=== PATIENT | male | born 1955 | race Caucasian/White ===

== ENCOUNTER 2020-01-12 19:42 | Outpatient (CLI) | payer BC | END 2020-01-12 19:43 | disposition short-term general hospital (02) | LOC: EMS 19:42 | PROVIDERS: ATTEND Surgery | DX: R53.1 Weakness (principal); R47.81 Slurred speech; R29.810 Facial weakness | CPT/HCPCS: A0425; A0429 ==

== ENCOUNTER 2020-04-09 05:38 | Outpatient (CLI) | payer BC | END 2020-04-09 05:39 | disposition critical access hospital (66) | LOC: EMS 05:38 | PROVIDERS: ATTEND Surgery | DX: R42 Dizziness and giddiness (principal); W06.XXXA Fall from bed, initial encounter; Y92.003 Bedroom of unspecified non-institutional (private) residence as the place of occurrence of the external cause; Z79.01 Long term (current) use of anticoagulants | CPT/HCPCS: A0425; A0429 ==

== ENCOUNTER 2020-04-09 06:11 | Emergency (ER) | payer BC ==
--- NOTE | 2020-04-09 07:20 | ED Physician Documentation ---
History of Present Illness - Stated complaint Stated Complaint: GLF - Chief complaint Chief Complaint: General - History obtained from History obtained from: Patient, Family (mom) - History of Present Illness Timing: Today - Additonal information Additional information: 64-year-old gentleman with history of ischemic stroke subsequently converted to hemorrhagic in early January complicated by DVT now on novel anticoagulation was getting out of bed this morning and usually waits for his to help him get up. He did not wait this morning and his left leg which is affected by the stroke did not support him and he fell forward hitting a table. He did hit his head but did not lose consciousness and does not have a headache. He has some chronic groin pain and this is somewhat worse but not terrible. Recently on Keflex for lower extremity cellulitis but had to stop prematurely because of an allergic reaction. Review of Systems Constitutional: reports: Reviewed and negative Nose: reports: Reviewed and negative Throat: reports: Reviewed and negative Cardiac: reports: Reviewed and negative Respiratory: reports: Reviewed and negative PD PAST MEDICAL HISTORY - Past Medical History Past Medical History: Yes Cardiovascular: High cholesterol, Deep vein thrombosis, Atrial fibrillation Neuro: CVA : Other Other Past Medical History: neurogenic bladder - Past Surgical History Past Surgical History: No - Present Medications Home Medications: Ambulatory Orders Medication Instructions Recorded Confirmed Apixaban [Eliquis] 04/09/20 Atorvastatin [Lipitor] 04/09/20 Clindamycin HCl [Clindamycin 300MG 300 mg PO Q6H #28 capsule 04/09/20 CAP] Furosemide 04/09/20 Gabapentin [Gralise] 04/09/20 Triamcinolone Acetonide 04/09/20 diphenhydrAMINE [Benadryl] 04/09/20 - Allergies Allergies/Adverse Reactions: Allergies Allergy/AdvReac Type Severity Reaction Status Date / Time cephalexin Allergy Rash Verified 04/09/20 06:15 Penicillins Allergy Hives Verified 04/09/20 06:15 - Social History Does the pt smoke?: No Smoking Status: Never smoker Does the pt drink ETOH?: Yes ETOH Use: Wine Does the pt have substance abuse?: No - Immunizations Immunizations are current?: Yes - POLST Patient has POLST: No PD ED PE NORMAL - Vitals Vital signs reviewed: Yes - General General: Alert and oriented X 3, No acute distress - HEENT HEENT: PERRL, EOMI - Neck Neck: Supple, no meningeal sign, No bony TTP - Cardiac Cardiac: RRR, No murmur - Respiratory Respiratory: No respiratory distress, Clear bilaterally - Abdomen Abdomen: Non tender - Extremities Extremities: Other (He has cellulitis on the bottom of the right foot with some open areas.) - Neuro Neuro: Alert and oriented X 3, Other (Barely has any motion of the left upper extremity, he is able to lift the Left lower extremity off the bed but is weak there. Does have a left facial droop that is moderate) Eye Opening: Spontaneous Motor: Obeys Commands Verbal: Oriented GCS Score: 15 Results - Vitals Vitals: Vital Signs - 24 hr 04/09/20 04/09/20 04/09/20 06:15 06:20 07:45 Temperature 36.8 C Heart Rate 72 70 70 Respiratory 18 18 16 Rate Blood Pressure 134/78 H 134/78 H 125/57 L O2 Saturation 97 98 100 04/09/20 04/09/20 04/09/20 08:00 08:05 08:10 Temperature Heart Rate 137 H 145 H 140 H Respiratory 16 16 17 Rate Blood Pressure 139/80 H 127/107 H 128/84 H O2 Saturation 100 99 97 04/09/20 04/09/20 04/09/20 08:15 08:20 08:25 Temperature Heart Rate 137 H 136 H 121 H Respiratory 16 16 18 Rate Blood Pressure 112/81 H 121/74 104/71 O2 Saturation 97 98 96 04/09/20 04/09/20 04/09/20 08:46 08:55 09:00 Temperature Heart Rate 114 H 130 H 131 H Respiratory 17 18 18 Rate Blood Pressure 111/82 H 127/92 H 121/85 H O2 Saturation 98 100 98 04/09/20 04/09/20 04/09/20 09:05 09:22 09:25 Temperature Heart Rate 135 H 119 H 115 H Respiratory 20 18 18 Rate Blood Pressure 109/87 H 103/60 111/72 O2 Saturation 98 97 97 04/09/20 04/09/20 04/09/20 09:30 09:35 09:40 Temperature Heart Rate 120 H 111 H 127 H Respiratory 16 16 18 Rate Blood Pressure 108/70 94/61 86/67 L O2 Saturation 98 98 98 04/09/20 04/09/20 04/09/20 09:45 09:55 10:05 Temperature Heart Rate 122 H 122 H 51 L Respiratory 18 19 17 Rate Blood Pressure 106/67 113/73 95/60 O2 Saturation 99 98 99 04/09/20 04/09/20 04/09/20 10:10 10:15 10:20 Temperature Heart Rate 50 L 51 L 52 L Respiratory 17 16 17 Rate Blood Pressure 90/62 91/59 L 91/59 L O2 Saturation 99 100 100 04/09/20 04/09/20 04/09/20 10:25 10:30 10:35 Temperature Heart Rate 52 L 52 L 52 L Respiratory 17 17 17 Rate Blood Pressure 90/58 L 90/63 93/60 O2 Saturation 100 99 99 04/09/20 10:55 Temperature Heart Rate 57 L Respiratory 18 Rate Blood Pressure 100/59 L O2 Saturation 100 Oxygen O2 Source Room air - Labs Labs: Laboratory Tests 04/09/20 04/09/20 09:15 09:15 WBC 10.0 RBC 4.61 L Hgb 13.6 L Hct 41.4 L MCV 89.8 MCH 29.5 MCHC 32.9 RDW 14.4 Plt Count 211 MPV 10.5 Neut # (Auto) 7.0 H Lymph # (Auto) 1.1 L [place] # (Auto) 0.7 Eos # (Auto) 1.1 H Baso # (Auto) 0.0 Absolute Nucleated RBC 0.00 Band Neuts % (Manual) Not Reportable Abnorm Lymph % (Manual) Not Reportable Nucleated RBC % 0.0 Neutrophils # (Manual) Not Reportable Lymphocytes # (Manual) Not Reportable Monocytes # (Manual) Not Reportable Eosinophils # (Manual) Not Reportable Basophils # (Manual) Not Reportable Differential Comment MANUAL=AUTO DIFF WBC Morphology NORMAL APPEARANCE Platelet Estimate NORMAL (130-450,000) Platelet Morphology NORMAL APPEARANCE RBC Morph Micro Appear NORMAL APPEARANCE Sodium 141 Potassium 3.8 Chloride 107 Carbon Dioxide 24 Anion Gap 10.0 BUN 19 Creatinine 0.9 Estimated GFR (MDRD) 85 L Glucose 115 H Calcium 9.5 Magnesium 2.2 Total Bilirubin 0.8 AST 27 ALT 39 Alkaline Phosphatase 73 Total Protein 7.3 Albumin 4.7 Globulin 2.6 Albumin/Globulin Ratio 1.8 Lipase 29 Procedures - Procedural sedation Sedation prep: Informed consent, Time out completed, Last meal (yest), PE performed, AHA 3 - severe disease Sedation medications: etomidate (10mg IVP) Patient status during sedation: Unresponsive, Vitals remained stable, Maintained airway, Recovered uneventfully Sedation recovery: Recovered uneventfully Time in sedation (Minutes): 10 - Cardioversion 1 Time of attempt: 10:00 Indication: Tachyarrhythmia Risks, benefits, alternatives explained to: Pt (and spouse) 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 He has a stable neurologic exam with evidence of prior stroke, but no signs of significant head injury. He went over the CAT scan there, CT was negative. At approximately 8 AM I was notified by the nurse that he had gone into rapid A. fib, on the monitor he was in A. fib with heart rates of about 130. He has not had his home metoprolol this morning and he was given 5 mg IV. This did not result in rate control, subsequently was given divided doses of diltiazem and more metoprolol without really any change in rate. He did become borderline hypotensive with these interventions, to the 90/60 range. IV magnesium was also given. Given that he is anticoagulated, he should be safe to electrically cardiovert and this was discussed with the patient and his and they were agreeable. Subsequently was given some etomidate and cardioverted successfully on the first shock. Recovered without issue. Departure - Departure Disposition: 01 Home, Self Care Clinical Impression: Right foot infection, Rapid atrial fibrillation Head injury Qualifiers: Encounter type: initial encounter Qualified Code(s): S09.90XA - Unspecified injury of head, initial encounter Condition: Good Record reviewed to determine appropriate education?: Yes Instructions: ED Infec Skin Cellulitis, ED Head Injury Closed Prescriptions: Clindamycin HCl [Clindamycin 300MG CAP] 300 mg PO Q6H #28 capsule Comments: You were seen today for minor head injury, noting that you are on blood thinners we did a CT scan which was negative. You also have a mild infection on the bottom of the right foot for which we are prescribing a new antibiotic. Follow- up with your doctor Sunday or Sunday for recheck. Return for new or worsening symptoms. While you were here you developed rapid atrial fibrillation was resistant to medications but we were able to shock you out of it easily. Hold the torsemide today because of some low blood pressures here, recheck your blood pressure tonight, if over 130 systolic (the top number) go ahead and restart your metoprolol tonight, otherwise restart it tomorrow. Discharge Date/Time: 04/09/20 11:15
[2020-04-09] MEDS ORDERED: ACETAMINOPHEN 325 MG TABLET PO STA (07:25)
[2020-04-09] MEDS ORDERED: METOPROLOL 5 MG/5 ML VIAL IVP STA ×2 (08:00→09:03)
[2020-04-09] MEDS ORDERED: DILTIAZEM 50 MG/10 ML VIAL IVP ONE ×2 (08:17→08:53)
--- NOTE | 2020-04-09 08:58 | CT Report ---
PROCEDURE: HEAD WO INDICATIONS: fall, head injury, on eliquis TECHNIQUE: Noncontrast 4.5 mm thick angled axial sections acquired from the foramen magnum to the vertex. For r adiation dose reduction, the following was used: automated exposure control, adjustment of mA and/or kV according to patient size. COMPARISON: None. FINDINGS: Image quality: Excellent. CSF spaces: Basal cisterns are patent. No extra-axial fluid collections. Ventricles are normal in size and shape. Brain: No midline shift. No intracranial masses or hemorrhage. Oglesby-white matter interface is norm al. Old right temporal ischemia extending to the basal ganglia. Skull and face: Calvarium and visualized facial bones are intact, without suspicious lesions. Sinuses: Visualized sinuses and mastoids are clear. IMPRESSION: 1. No acute intracranial process. Reviewed by: Bere Rodriguez MD on 04/09/2020 8:56 AM PDT Approved by: Bere Rodriguez MD on 04/09/2020 8:56 AM PDT Station ID: [id number]
[2020-04-09] MEDS ORDERED: MAGNESIUM SULFATE 2 GRAM 2 GM/50 ML BAG IV ONE (09:03)
[2020-04-09 09:21] LABS: BASOPHILS % (AUTO) 0.2 %; EOSINOPHILS # (AUTO) 1.1 10^3/uL (0.0-0.7); EOSINOPHILS % (AUTO) 10.8 %; HGB - HEMOGLOBIN 13.6 g/dL (14.0-18.0); LYMPHOCYTES # (AUTO) 1.1 10^3/uL (1.5-3.5); LYMPHOCYTES % (AUTO) 11.4 %; MEAN CORPUSCULAR HEMOGLOBIN 29.5 pg (27.0-31.0); MEAN CORPUSCULAR HGB CONC 32.9 g/dL (32.0-36.0); MEAN CORPUSCULAR VOLUME 89.8 fL (80.0-94.0); MEAN PLATELET VOLUME 10.5 fL (7.4-11.4); MONOCYTES # (AUTO) 0.7 10^3/uL (0.0-1.0); MONOCYTES % (AUTO) 7.4 %; NEUTROPHILS % (AUTO) 69.9 %; PLT - PLATELET COUNT 211 10^3/uL (130-450); RED BLOOD COUNT 4.61 10^6/uL (4.70-6.10); RED CELL DISTRIBUTION WIDTH 14.4 % (12.0-15.0)
[2020-04-09 09:35] LABS: ALBUMIN 4.7 g/dL (3.2-5.5); ALBUMIN/GLOBULIN RATIO 1.8 (1.0-2.2); BILIRUBIN,TOTAL 0.8 mg/dL (0.2-1.0); CALCIUM 9.5 mg/dL (8.5-10.3); CREATININE 0.9 mg/dL (0.6-1.2); MAGNESIUM 2.2 mg/dL (1.7-2.8); TOTAL PROTEIN 7.3 g/dL (6.7-8.2)
[2020-04-09] MEDS ORDERED: ETOMIDATE 40 MG/20 ML VIAL IVP STA (09:48)
[2020-04-09 09:51] LABS: DIFFERENTIAL COMMENT MANUAL=AUTO DIFF; PLATELET ESTIMATE, MANUAL NORMAL (130-450,000) (NORMAL); PLATELET MORPHOLOGY NORMAL APPEARANCE (NORMAL); RBC MORPHOLOGY (MULTIPLE) NORMAL APPEARANCE (NORMAL)
[2020-04-09 11:58] VITALS: BP 100/59
== END 2020-04-09 11:15 | disposition home or self-care (01) ==
LOC: ED 06:11
DX: S09.90XA Unspecified injury of head, initial encounter (principal); W01.190A Fall on same level from slipping, tripping and stumbling with subsequent striking against furniture, initial encounter; Y93.89 Activity, other specified; Y92.003 Bedroom of unspecified non-institutional (private) residence as the place of occurrence of the external cause; I48.91 Unspecified atrial fibrillation; I95.9 Hypotension, unspecified; L03.115 Cellulitis of right lower limb; Z79.01 Long term (current) use of anticoagulants; I69.354 Hemiplegia and hemiparesis following cerebral infarction affecting left non-dominant side; I69.392 Facial weakness following cerebral infarction; Z86.718 Personal history of other venous thrombosis and embolism; Z88.1 Allergy status to other antibiotic agents; Z88.0 Allergy status to penicillin
CPT/HCPCS: 36415; 70450; 80053; 83690; 83735; 85025; 92960; 96365; 96375; 96376; 99284; 99285; A9270; 94770

== ENCOUNTER 2020-05-25 15:09 | Emergency (ER) | payer SELFPAY ==
[2020-05-25 15:48] LABS: BASOPHILS % (AUTO) 0.2 %; EOSINOPHILS # (AUTO) 0.1 10^3/uL (0.0-0.7); EOSINOPHILS % (AUTO) 1.9 %; LYMPHOCYTES # (AUTO) 1.3 10^3/uL (1.5-3.5); LYMPHOCYTES % (AUTO) 22.8 %; MEAN CORPUSCULAR HEMOGLOBIN 28.9 pg (27.0-31.0); MEAN CORPUSCULAR HGB CONC 33.1 g/dL (32.0-36.0); MEAN CORPUSCULAR VOLUME 87.2 fL (80.0-94.0); MEAN PLATELET VOLUME 10.3 fL (7.4-11.4); MONOCYTES # (AUTO) 0.7 10^3/uL (0.0-1.0); MONOCYTES % (AUTO) 11.8 %; NEUTROPHILS # (AUTO) 3.6 10^3/uL (1.5-6.6); NEUTROPHILS % (AUTO) 63.1 %; PLT - PLATELET COUNT 184 10^3/uL (130-450); RED BLOOD COUNT 4.85 10^6/uL (4.70-6.10); RED CELL DISTRIBUTION WIDTH 14.5 % (12.0-15.0); WHITE BLOOD COUNT 5.7 x10^3/uL (4.8-10.8)
[2020-05-25 15:59] LABS: ALBUMIN/GLOBULIN RATIO 1.6 (1.0-2.2); BILIRUBIN,TOTAL 0.3 mg/dL (0.2-1.0); CREATININE 1.1 mg/dL (0.6-1.2); TOTAL PROTEIN 6.5 g/dL (6.7-8.2)
--- NOTE | 2020-05-25 16:12 | XRAY Report ---
PROCEDURE: Chest 1 View X-Ray INDICATIONS: Chest Pain TECHNIQUE: One view of the chest was acquired. COMPARISON: None. FINDINGS: Surgical changes and devices: None. Lungs and pleura: No pleural effusions or pneumothorax. Lungs are clear. Mediastinum: Mediastinal contours appear normal. Heart size is within normal limits. Bones and chest wall: No suspicious bony lesions. Overlying soft tissues appear unremarkable. IMPRESSION: No acute cardiopulmonary abnormality. Reviewed by: Mulugeta Yang MD on 05/25/2020 4:11 PM PDT Approved by: Mulugeta Yang MD on 05/25/2020 4:11 PM PDT Station ID: [id number]
--- NOTE | 2020-05-25 16:36 | ED Physician Documentation ---
History of Present Illness - Stated complaint Stated Complaint: IRREGULAR HEART RATE - Chief complaint Chief Complaint: Cardiac - History obtained from History obtained from: Patient - History of Present Illness Timing: Prior to arrival - Additonal information Additional information: 64-year-old male presents the emergency department for evaluation elevated heart rate that was noted at home this afternoon when he was participating in physical therapy. This gentleman has a history of atrial fibrillation for which he was controlled on Metroprolol 100 mg daily for many years. However unfortunately in December 2019 he had a CVA. He was treated at [facility]. While hospitalized his medications were adjusted and he is now simply on metoprolol 12-1/2 mg daily. CVA is thought to be secondary to blood clots in his left leg. The reports that when he was hospitalized for a few days he did have transient episodes of atrial fib.He currently has an IVC filter in place and is anticoagulated on Eliquis. His fibrillation is rate controlled with metoprolol 12.5 mg daily. She states that he typically she typically checks his heart rate and it is t ypically in the 50s and 60s at home. Today while participating in physical therapy it oscillated between the 60s and 160s. During this time patient denies that he had any chest pain, sensation of palpitations, dyspnea, nausea, headache or increase in baseline left-sided weakness Patient is scheduled to see his PCP Dr. Yin early next week at the [facility]. He has also been followed by cardiology through the [facility] in the past. Review of Systems Constitutional: denies: Fever, Chills Eyes: denies: Loss of vision, Decreased vision Nose: denies: Rhinorrhea / runny nose Throat: denies: Dental pain / toothache, Oral lesions / sores Cardiac: reports: Other (baseline left leg swelling). denies: Chest pain / pressure, Palpitations Respiratory: denies: Dyspnea, Cough, Hemoptysis, Wheezing GI: denies: Abdominal Pain, Abdominal Swelling, Nausea : denies: Dysuria, Frequency Skin: denies: Rash, Lesions Musculoskeletal: denies: Neck pain, Back pain, Extremity pain, Joint pain Neurologic: reports: Focal weakness (left side). denies: Numbness, Difficulty speaking, Syncope, Seizure, Confused, Altered mental status, Headache, Head injury, LOC Psychiatric: denies: Depressed, Suicidal Endocrine: denies: Polydypsia PD PAST MEDICAL HISTORY - Past Medical History Cardiovascular: High cholesterol, Deep vein thrombosis, Atrial fibrillation Neuro: CVA : Other - Past Surgical History Past Surgical History: No - Present Medications Home Medications: Ambulatory Orders Medication Instructions Recorded Confirmed Apixaban [Eliquis] 04/09/20 Atorvastatin [Lipitor] 04/09/20 Clindamycin HCl [Clindamycin 300MG 300 mg PO Q6H #28 capsule 04/09/20 CAP] Furosemide 04/09/20 Gabapentin [Gralise] 04/09/20 Triamcinolone Acetonide 04/09/20 diphenhydrAMINE [Benadryl] 04/09/20 - Allergies Allergies/Adverse Reactions: Allergies Allergy/AdvReac Type Severity Reaction Status Date / Time cephalexin Allergy Rash Verified 04/09/20 06:15 Penicillins Allergy Hives Verified 04/09/20 06:15 - Social History Does the pt smoke?: No Smoking Status: Never smoker Does the pt drink ETOH?: Yes Does the pt have substance abuse?: No - Immunizations Immunizations are current?: Yes - POLST Patient has POLST: No PD ED PE EXPANDED - General General: Alert, No acute distress, Well developed/nourished, Disheveled, poorly kept - HEENT HEENT: Atraumatic, PERRL - Neck Neck: Supple w/out meningeal sx. No: No tenderness, Limited ROM - Cardiac Cardiac: Regular Rate, Regular Rhythm, Radial strong equal, Femoral strong equal, Pedal strong equal, Cap refill < 2 sec, Prolonged cap refill - Respiratory Respiratory: Clear to ausultation ariane. No: Distress, Labored - Abdomen Abdomen: Normal Bowel sounds. No: Tender to palpation - Back Back: No: Normal ROM, Vertebral tenderness - Extremities Extremities: No: Normal, Deformity, Tenderness - Neuro Neuro: Alert and Oriented X 3 (baseline left leg/arm weakness. ), CNII-XII intact - GCS Eye Opening: Spontaneous Motor: Obeys Commands Verbal: Oriented Total: 15 Results - Vitals Vitals: Vital Signs - 24 hr 05/25/20 15:14 Temperature 36.5 C Heart Rate 62 Respiratory 16 Rate Blood Pressure 114/64 O2 Saturation 97 Oxygen O2 Source Room air - EKG (time done) 1514 Rate: Rate (enter#) (61) Rhythm: NSR [place]: Normal Intervals: Normal [place] QRS: Normal Ischemia: Q waves (old inferior infarct) Compare to prior EKG: Old EKG unavailable Computer interpretation: Agree with computer - Labs Labs: Laboratory Tests 05/25/20 05/25/20 05/25/20 15:40 15:40 15:40 WBC 5.7 RBC 4.85 Hgb 14.0 Hct 42.3 MCV 87.2 MCH 28.9 MCHC 33.1 RDW 14.5 Plt Count 184 MPV 10.3 Neut # (Auto) 3.6 Lymph # (Auto) 1.3 L S[place] # (Auto) 0.7 Eos # (Auto) 0.1 Baso # (Auto) 0.0 Absolute Nucleated RBC 0.00 Nucleated RBC % 0.0 Sodium 141 Potassium 4.0 Chloride 105 Carbon Dioxide 30 Anion Gap 6.0 BUN 25 H Creatinine 1.1 Estimated GFR (MDRD) 67 L Glucose 100 Calcium 9.0 Total Bilirubin 0.3 AST 19 ALT 32 Alkaline Phosphatase 58 Troponin I High Sens 2.9 B-Natriuretic Peptide Total Protein 6.5 L Albumin 4.0 Globulin 2.5 Albumin/Globulin Ratio 1.6 Lipase 32 05/25/20 15:40 WBC RBC Hgb Hct MCV MCH MCHC RDW Plt Count MPV Neut # (Auto) Lymph # (Auto) Sully # (Auto) Eos # (Auto) Baso # (Auto) Absolute Nucleated RBC Nucleated RBC % Sodium Potassium Chloride Carbon Dioxide Anion Gap BUN Creatinine Estimated GFR (MDRD) Glucose Calcium Total Bilirubin AST ALT Alkaline Phosphatase Troponin I High Sens B-Natriuretic Peptide 129 H Total Protein Albumin Globulin Albumin/Globulin Ratio Lipase - Rads (name of study) CXR Radiology: Final report received (No acute cardiopulmonary process) PD MEDICAL DECISION MAKING - ED course Complexity details: reviewed results, d/w patient, d/w family ED course: 64-year-old male presents to the emergency department for evaluation of an elevated heart rate that both during and after his physical therapy at home today. This gentleman does have a history of atrial fib which is rate controlled on 12.5 mg of metoprolol daily. At this time in the emergency department his heart rate has been sinus rhythm in the 50s and 60s. He has had no ectopic beats or runs of fibrillation. - Reassuringly he is anticoagulated on Eliquis. However due to the DVTs in his left leg and at the advice of his vascular surgeon he also has an IVC filter in place. - I have also reviewed his labs and there are no concerning findings. He has a negative troponin. His BNP is noted to be 129 but without anything to compare to my suspicion for acute heart failure is very low at this time. Chest x-ray is without any acute focal abnormality. - I discussed this visit at length with his . The patient feels very well and given the heart rate of 60 further beta-blockade is not advised. Patient has close follow-up scheduled with his primary care doctor early next week. At that time consideration of different medications to control the heart rate can be considered especially if he has recurrent episodes in which his heart rate remains Departure - Departure Disposition: 01 Home, Self Care Clinical Impression: History of atrial fibrillation, Recent cerebrovascular accident (CVA) Condition: Stable Record reviewed to determine appropriate education?: Yes Instructions: Atrial Fibrillation Dc Follow-Up: JESSE YIN MD [Primary Care Provider] - Comments: I hope that you are feeling better soon. Today in the emergency department your labs have been essentially normal. Your heart rate has been in the 60s and was without any runs of fibrillation. Because you will are already taking metoprolol and your heart rate is in the 60s further medication or beta-tavo is not advised at this time. It is very important that you continue close follow-up with your primary care doctor and/or the supervisor special education at the [facility]. I do recommend that you check his heart rate before and after activity. If you find that he has sustained heart rates in the 150s or 160s I would return him to the emergency department. Return sooner for any chest pain, feelings of palpitations, fainting episodes or if you feel weak or dizzy
[2020-05-25 17:11] VITALS: BP 122/73
== END 2020-05-25 17:15 | disposition home or self-care (01) ==
LOC: ED 15:09
DX: I48.91 Unspecified atrial fibrillation (principal); Z79.01 Long term (current) use of anticoagulants; Z86.73 Personal history of transient ischemic attack (TIA), and cerebral infarction without residual deficits
CPT/HCPCS: 36415; 71045; 80053; 83690; 83880; 84484; 85025; 93005; 99284